=== PATIENT | female | born 1990 | race Caucasian/White ===

== ENCOUNTER 2021-03-05 20:40 | Inpatient (IN) | payer OTHER ==
[2021-03-05 21:54] VITALS: BMI 30.8
[2021-03-05 22:17] LABS: BASO % 0.7 % (0-2.0); EOS % 0.1 % (0-4.5); HEMOGLOBIN 12.1 GM/dL (10.7-15.3); LYMPH % 9.8 % (8-40); MCH 28.2 pg (25.7-33.7); MCHC 32.6 g/dl (32.0-36.0); MEAN CELL VOLUME 86.6 fl (80-96); MEAN PLT VOLUME 8.5 fl (7.5-11.1); MONO % 5.2 % (3.8-10.2); NEUT % 84.2 % (42.8-82.8); PLATELET COUNT 343 10^3/uL (134-434); RBC 4.28 M/mm3 (3.60-5.2); RDW 15.6 % (11.6-15.6); WHITE BLOOD COUNT 13.4 K/mm3 (4.0-10.0)
[2021-03-05 22:26] LABS: INR 0.97 (0.83-1.09); PROTHROMBIN TIME (PATIENT) 11.2 SEC (9.7-13.0)
[2021-03-05 22:28] LABS: ACTIVATED PTT 26.3 SECONDS (25.2-36.5)
[2021-03-05] MEDS ORDERED: BUPIVACAINE HCL/PF 0.25% (2.5MG/ML) 10 ML VIAL ONE (22:36)
[2021-03-05] MEDS ORDERED: FENTANYL/BUPIVACAINE/NS/PF - PCEA - 50 ML DISP.SYRIN EP ONE (22:39)
[2021-03-05 22:43] LABS: BLOOD UREA NITROGEN 11.6 mg/dL (7-18)
[2021-03-05] MEDS ORDERED: ELECTROLYTE-148 SOLN 1,000 ML IV SCH (22:45)
[2021-03-05 22:46] LABS: CREATININE 0.6 mg/dL (0.55-1.3)
[2021-03-05] MEDS: FENTANYL/BUPIVACAINE/NS/PF - PCEA - 50 ML DISP.SYRIN EP SCH (22:50)
[2021-03-05] MEDS ORDERED: NALOXONE HCL 0.4 MG/ML VIAL IVPUSH PRN (23:00)
[2021-03-06] MEDS ORDERED: OXYTOCIN 30 UNITS in 0.9% NS 30 UNIT/500 ML INFUS.BAG IVPB ONE (01:53)
[2021-03-06] MEDS ORDERED: OXYTOCIN 20 UNITS in 0.9% NS 20 UNIT/1,000 ML INFUS.BAG IV ONE (01:53)
[2021-03-06] MEDS ORDERED: FENTANYL/BUPIVACAINE/NS/PF - PCEA - 50 ML DISP.SYRIN EP ONE (02:44)
[2021-03-06] MEDS: FENTANYL/BUPIVACAINE/NS/PF - PCEA - 50 ML DISP.SYRIN EP SCH (02:45)
[2021-03-06] MEDS ORDERED: OXYTOCIN 30 UNITS in 0.9% NS 30 UNIT/500 ML INFUS.BAG IVPB SCH (04:45)
[2021-03-06] MEDS ORDERED: METHYLERGONOVINE MALEATE 0.2 MG/1 ML AMP IM PRN (08:23)
[2021-03-06] MEDS ORDERED: WITCH HAZEL 50% (TUCKS) 40 PAD/JAR PAD TP PRN (08:23)
[2021-03-06] MEDS ORDERED: BISACODYL 10 MG SUPP.RECT RC PRN (08:23)
[2021-03-06] MEDS ORDERED: BENZOCAINE 20% 57 GM BOTTLE TP PRN (08:23)
[2021-03-06] MEDS ORDERED: oxyCODONE HCL 5 MG TABLET PO PRN (08:23)
[2021-03-06] MEDS ORDERED: ACETAMINOPHEN 325 MG TABLET (FP) PO PRN (08:23)
[2021-03-06] MEDS ORDERED: BENZOCAINE 28 GM HEMORRHOIDAL OINTMENT TP PRN (08:23)
[2021-03-06] MEDS ORDERED: OXYTOCIN 20 UNITS in 0.9% NS 20 UNIT/1,000 ML INFUS.BAG IV SCH (08:30)
[2021-03-06 08:44] LABS: CORD HCO3 20.9 mmHg (20-29); CORD PCO2 60.4 mmHg (30-78); CORD pH 7.157 (7.14-7.44)
[2021-03-06 08:48] LABS: CORD BASE EXCESS -8.5 mmol/L (0-2); CORD HCO3 19.5 mmHg (20-29); CORD PCO2 48.7 mmHg (30-78); CORD pH 7.22 (7.14-7.44)
[2021-03-06] MEDS: IBUPROFEN 600 MG TABLET (FP) PO PRN (11:01)
[2021-03-06] MEDS: PRENATAL VITAMINS W/ FOLIC ACID TABLET (FP) PO SCH (11:01)
[2021-03-06] MEDS: FERROUS SO4 325 MG TABLET (FP) PO SCH (18:39)
[2021-03-07] MEDS: IBUPROFEN 600 MG TABLET (FP) PO PRN ×3 (01:07→21:46)
[2021-03-07 07:34] LABS: BASO % 0.3 % (0-2.0); HEMATOCRIT 30.4 % (32.4-45.2); HEMOGLOBIN 9.9 GM/dL (10.7-15.3); LYMPH % 16.3 % (8-40); MCH 28.5 pg (25.7-33.7); MCHC 32.5 g/dl (32.0-36.0); MEAN CELL VOLUME 87.7 fl (80-96); MEAN PLT VOLUME 8.4 fl (7.5-11.1); MONO % 4.6 % (3.8-10.2); NEUT % 77.8 % (42.8-82.8); PLATELET COUNT 264 10^3/uL (134-434); RBC 3.47 M/mm3 (3.60-5.2); RDW 15.6 % (11.6-15.6); WHITE BLOOD COUNT 12.2 K/mm3 (4.0-10.0)
[2021-03-07] MEDS: FERROUS SO4 325 MG TABLET (FP) PO SCH ×2 (08:16→16:36)
[2021-03-07] MEDS: PRENATAL VITAMINS W/ FOLIC ACID TABLET (FP) PO SCH (10:51)
[2021-03-07] MEDS ORDERED: SENNOSIDES/DOCUSATE COMBO (SENNA PLUS) TABLET (UD) PO PRN (22:00)
[2021-03-08] MEDS: FERROUS SO4 325 MG TABLET (FP) PO SCH (08:13)
[2021-03-08] MEDS: PRENATAL VITAMINS W/ FOLIC ACID TABLET (FP) PO SCH (09:24)
[2021-03-08 09:46] VITALS: BP 133/70; PULSE 78; TEMP 97.9
== END 2021-03-08 11:12 | disposition home or self-care (01) | DRG 560 ==
LOC: JLDR 20:40 → J3W 03-06 09:50
PROVIDERS: ADMIT Obstetrics & Gynecology; ATTEND Obstetrics & Gynecology
PROC: 10E0XZZ Delivery of Products of Conception, External Approach (ICD-10-PCS; principal; 2021-03-06)
PROC: 0W8NXZZ Division of Female Perineum, External Approach (ICD-10-PCS; 2021-03-06)
DX: O42.02 Full-term premature rupture of membranes, onset of labor within 24 hours of rupture (principal); O77.0 Labor and delivery complicated by meconium in amniotic fluid; O99.214 Obesity complicating childbirth; E66.9 Obesity, unspecified; Z37.0 Single live birth; Z3A.39 39 weeks gestation of pregnancy
CPT/HCPCS: 36415; 36600; 59025; 59409; 80048; 82803; 85025; 85610; 85730; 86780; 86850; 86900; 86901; C9803; U0003; U0005

== ENCOUNTER 2022-03-10 15:30 | Inpatient (IN) | payer OTHER ==
[2022-03-10] MEDS ORDERED: OXYTOCIN 10 UNITS/ML VIAL ONE (16:47)
[2022-03-10] MEDS ORDERED: LIDOCAINE HCL 1% PRESERVATIVE FREE - 30ML VIAL ONE (16:51)
[2022-03-10] MEDS ORDERED: WITCH HAZEL 50% (TUCKS) 40 PAD/JAR PAD TP PRN (17:18)
[2022-03-10] MEDS ORDERED: ACETAMINOPHEN 325 MG TABLET (FP) PO PRN (17:18)
[2022-03-10] MEDS ORDERED: BISACODYL 10 MG SUPP.RECT RC PRN (17:18)
[2022-03-10] MEDS ORDERED: BENZOCAINE 28 GM HEMORRHOIDAL OINTMENT TP PRN (17:18)
[2022-03-10] MEDS ORDERED: BENZOCAINE 20% 57 GM BOTTLE TP PRN (17:18)
[2022-03-10] MEDS ORDERED: OXYTOCIN 10 UNITS/ML VIAL IM ONE (17:19)
[2022-03-10 17:47] LABS: CORD BASE EXCESS -6.3 mmol/L (0-2); CORD HCO3 20.8 mmHg (20-29); CORD PCO2 46.6 mmHg (30-78); CORD pH 7.268 (7.14-7.44)
[2022-03-10 17:48] LABS: CORD BASE EXCESS -8.5 mmol/L (0-2); CORD HCO3 18.1 mmHg (20-29); CORD PCO2 41.1 mmHg (30-78); CORD pH 7.262 (7.14-7.44)
[2022-03-10 18:11] VITALS: BMI 30.2
[2022-03-10] MEDS ORDERED: IBUPROFEN 600 MG TABLET (FP) PO ONE (19:22)
[2022-03-10] MEDS: IBUPROFEN 600 MG TABLET (FP) PO PRN (19:25)
[2022-03-10 19:55] LABS: BASO % 0.6 % (0-2.0); HEMATOCRIT 33.3 % (32.4-45.2); HEMOGLOBIN 10.6 GM/dL (10.7-15.3); LYMPH % 5.3 % (8-40); MCH 25.3 pg (25.7-33.7); MCHC 31.7 g/dl (32.0-36.0); MEAN CELL VOLUME 79.6 fl (80-96); MEAN PLT VOLUME 8.8 fl (7.5-11.1); MONO % 3.3 % (3.8-10.2); NEUT % 90.8 % (42.8-82.8); PLATELET COUNT 356 10^3/uL (134-434); RBC 4.18 M/mm3 (3.60-5.2); RDW 15.6 % (11.6-15.6); WHITE BLOOD COUNT 19.6 K/mm3 (4.0-10.0)
[2022-03-10 20:06] LABS: INR 1.03 (0.83-1.09); PROTHROMBIN TIME (PATIENT) 11.8 SEC (9.7-13.0)
[2022-03-10 20:10] LABS: ACTIVATED PTT 27.6 SECONDS (25.2-36.5)
[2022-03-10 20:27] LABS: CREATININE 0.5 mg/dL (0.55-1.3)
[2022-03-11] MEDS: IBUPROFEN 600 MG TABLET (FP) PO PRN ×3 (01:14→21:32)
[2022-03-11 09:06] LABS: BASO % 0.1 % (0-2.0); EOS % 0.4 % (0-4.5); HEMATOCRIT 28.7 % (32.4-45.2); HEMOGLOBIN 9.5 GM/dL (10.7-15.3); LYMPH % 16.1 % (8-40); MCH 26.6 pg (25.7-33.7); MCHC 33.2 g/dl (32.0-36.0); MEAN CELL VOLUME 80.1 fl (80-96); MEAN PLT VOLUME 8.5 fl (7.5-11.1); MONO % 5.1 % (3.8-10.2); NEUT % 78.3 % (42.8-82.8); PLATELET COUNT 286 10^3/uL (134-434); RBC 3.58 M/mm3 (3.60-5.2); RDW 15.5 % (11.6-15.6); WHITE BLOOD COUNT 12.8 K/mm3 (4.0-10.0)
[2022-03-11] MEDS ORDERED: SENNOSIDES/DOCUSATE COMBO (SENNA PLUS) TABLET (UD) PO PRN (22:00)
[2022-03-12 11:09] VITALS: BP 126/67; PULSE 80; RESP 20; TEMP 98.3
== END 2022-03-12 14:00 | disposition home or self-care (01) | DRG 560 ==
LOC: JDEL 15:30 → JLDR 16:35 → J3W 21:01
PROVIDERS: ADMIT Student in an Organized Health Care Education/Training Program; ATTEND Student in an Organized Health Care Education/Training Program
PROC: 10E0XZZ Delivery of Products of Conception, External Approach (ICD-10-PCS; principal; 2022-03-10)
PROC: 0W8NXZZ Division of Female Perineum, External Approach (ICD-10-PCS; 2022-03-10)
PROC: 0KQM0ZZ Repair Perineum Muscle, Open Approach (ICD-10-PCS; 2022-03-10)
DX: O70.1 Second degree perineal laceration during delivery (principal); Z3A.39 39 weeks gestation of pregnancy; Z37.0 Single live birth
CPT/HCPCS: 36415; 36600; 59409; 80048; 82803; 85025; 85610; 85730; 86780; 86850; 86900; 86901; C9803-CS; U0003; U0005

== ENCOUNTER 2022-12-04 11:02 | Emergency (ER) | payer OTHER ==
[2022-12-04 11:10] VITALS: BP 113/69; PULSE 118; RESP 18; TEMP 98.3; BMI 27.3
[2022-12-04 13:44] LABS: HCG,QUALITATIVE URINE Borderline hCG level
[2022-12-04 13:45] LABS: EPI CELLS >36 /uL (0-25.1); HYALINE CASTS 30 /uL (0-3.1); PH,URINE 5.5 (5.0-8.0); URINE APPEARANCE CLOUDY; URINE BACTERIA 108 /uL (0-1359); URINE BILIRUBIN 1+ (NEGATIVE); URINE COLOR DK YELLOW; URINE GLUCOSE (UA) NEGATIVE (NEGATIVE); URINE KETONE TRACE (NEGATIVE); URINE LEUK ESTERASE TRACE (NEGATIVE); URINE NITRITE NEGATIVE (NEGATIVE); URINE PROTEIN 2+ (NEGATIVE); URINE RBC 668 /uL (0-23.9); URINE WBC 65 /uL (0-25.8)
[2022-12-04 14:22] LABS: BASO % 0.5 % (0-2.0); EOS % 0.4 % (0-4.5); HEMATOCRIT 34.8 % (32.4-45.2); HEMOGLOBIN 11.1 GM/dL (10.7-15.3); LYMPH % 11.4 % (8-40); MCH 25.5 pg (25.7-33.7); MEAN CELL VOLUME 79.9 fl (80-96); MEAN PLT VOLUME 7.9 fl (7.5-11.1); MONO % 3.8 % (3.8-10.2); NEUT % 83.9 % (42.8-82.8); PLATELET COUNT 366 10^3/uL (134-434); RBC 4.36 M/mm3 (3.60-5.2); RDW 16.1 % (11.6-15.6); WHITE BLOOD COUNT 10.4 K/mm3 (4.0-10.0)
== END 2022-12-04 16:37 | disposition home or self-care (01) ==
LOC: JERFT 11:02
DX: N93.9 Abnormal uterine and vaginal bleeding, unspecified (principal); R51.9 Headache, unspecified; R11.0 Nausea; R07.89 Other chest pain; R10.30 Lower abdominal pain, unspecified; Z30.432 Encounter for removal of intrauterine contraceptive device
CPT/HCPCS: 36415; 76830-TC; 81003; 84702; 84703; 85025; 86850; 86900; 86901; 87086; 99284-25

== ENCOUNTER 2023-10-11 17:00 | Inpatient (IN) | payer OTHER ==
[2023-10-11 18:31] VITALS: BMI 30.6
[2023-10-11 19:17] LABS: BASO % 0.4 % (0-2.0); EOS % 0.4 % (0-4.5); HEMATOCRIT 32.6 % (32.4-45.2); HEMOGLOBIN 11.1 GM/dL (10.7-15.3); LYMPH % 14.8 % (8-40); MCH 28.9 pg (25.7-33.7); MCHC 34.2 g/dl (32.0-36.0); MEAN CELL VOLUME 84.7 fl (80-96); MEAN PLT VOLUME 7.7 fl (7.5-11.1); MONO % 4.5 % (3.8-10.2); NEUT % 79.9 % (42.8-82.8); PLATELET COUNT 317 10^3/uL (134-434); RBC 3.85 M/mm3 (3.60-5.2); RDW 18.2 % (11.6-15.6); WHITE BLOOD COUNT 9.5 K/mm3 (4.0-10.0)
[2023-10-11 19:27] LABS: PROTHROMBIN TIME (PATIENT) 11.3 SEC (9.7-13.0)
[2023-10-11 19:30] LABS: ACTIVATED PTT 32.3 SECONDS (25.2-36.5)
[2023-10-11 19:37] LABS: POTASSIUM 3.8 mmol/L (3.5-5.1)
[2023-10-11 19:39] LABS: BLOOD UREA NITROGEN 5.6 mg/dL (7-18)
[2023-10-11 19:42] LABS: CREATININE 0.5 mg/dL (0.55-1.3)
[2023-10-11] MEDS ORDERED: LACTATED RINGERS SOLUTION 1,000 ML/1,000 ML INFUS.BAG IV SCH (20:00)
[2023-10-11] MEDS ORDERED: FENTANYL/BUPIVACAINE/NS/PF - PCEA - 50 ML DISP.SYRIN EP ONE ×2 (20:09→22:44)
[2023-10-11 20:34] LABS: HIV INTERPRETATION NEGATIVE (NEGATIVE)
[2023-10-11] MEDS: FENTANYL/BUPIVACAINE/NS/PF - PCEA - 50 ML DISP.SYRIN EP SCH (20:35)
[2023-10-11] MEDS: ELECTROLYTE-148 SOLN 1,000 ML IV SCH (20:40)
[2023-10-11] MEDS ORDERED: NALOXONE HCL 0.4 MG/ML VIAL IVPUSH PRN (20:50)
[2023-10-11] MEDS ORDERED: LIDOCAINE HCL 1% PRESERVATIVE FREE - 30ML VIAL ONE (21:56)
[2023-10-11] MEDS ORDERED: OXYTOCIN 20 UNITS in 0.9% NS 20 UNIT/1,000 ML INFUS.BAG IV ONE (21:57)
[2023-10-11] MEDS: OXYTOCIN 20 UNITS in 0.9% NS 20 UNIT/1,000 ML INFUS.BAG IV SCH (23:20)
[2023-10-11] MEDS ORDERED: oxyCODONE HCL 5 MG TABLET PO PRN (23:40)
[2023-10-11] MEDS ORDERED: BENZOCAINE 20% 57 GM BOTTLE TP PRN (23:40)
[2023-10-11] MEDS ORDERED: WITCH HAZEL 50% (TUCKS) 40 PAD/JAR PAD TP PRN (23:40)
[2023-10-11] MEDS ORDERED: BISACODYL 10 MG SUPP.RECT RC PRN (23:40)
[2023-10-11] MEDS ORDERED: BENZOCAINE 28 GM HEMORRHOIDAL OINTMENT TP PRN (23:40)
[2023-10-11] MEDS ORDERED: METHYLERGONOVINE MALEATE 0.2 MG/1 ML AMP IM PRN (23:40)
[2023-10-12] LABS: CORD BASE EXCESS -8.1 mmol/L (0-2); CORD HCO3 19.5 mmHg (20-29); CORD PCO2 47.4 mmHg (30-78); CORD pH 7.233 (7.14-7.44)
[2023-10-12 00:02] LABS: CORD BASE EXCESS -4.5 mmol/L (0-2); CORD PCO2 40.4 mmHg (30-78); CORD pH 7.334 (7.14-7.44)
[2023-10-12 02:11] VITALS: RESP 18
[2023-10-12] MEDS: IBUPROFEN 600 MG TABLET (FP) PO PRN (02:14)
[2023-10-12 07:23] LABS: BASO % 0.1 % (0-2.0); EOS % 0.4 % (0-4.5); HEMOGLOBIN 9.8 GM/dL (10.7-15.3); LYMPH % 13.6 % (8-40); MCH 28.7 pg (25.7-33.7); MCHC 33.7 g/dl (32.0-36.0); MEAN CELL VOLUME 85.3 fl (80-96); MONO % 4.8 % (3.8-10.2); NEUT % 81.1 % (42.8-82.8); PLATELET COUNT 258 10^3/uL (134-434); WHITE BLOOD COUNT 13.6 K/mm3 (4.0-10.0)
[2023-10-12] MEDS: ACETAMINOPHEN 325 MG TABLET (FP) PO PRN (08:10)
[2023-10-12] MEDS: PRENATAL VITAMINS W/ FOLIC ACID TABLET (FP) PO SCH (09:58)
[2023-10-12] MEDS: SENNOSIDES/DOCUSATE COMBO (SENNA PLUS) TABLET (UD) PO PRN (21:12)
[2023-10-13 10:08] VITALS: BP 117/74; PULSE 83; TEMP 98.4
== END 2023-10-13 13:15 | disposition home or self-care (01) | DRG 560 ==
LOC: JDEL 17:00 → JLDR 17:59 → J3W 10-12 01:22
PROVIDERS: ADMIT Obstetrics & Gynecology; ATTEND Obstetrics & Gynecology
PROC: 10E0XZZ Delivery of Products of Conception, External Approach (ICD-10-PCS; principal; 2023-10-11)
PROC: 0KQM0ZZ Repair Perineum Muscle, Open Approach (ICD-10-PCS; 2023-10-11)
PROC: 0W8NXZZ Division of Female Perineum, External Approach (ICD-10-PCS; 2023-10-11)
DX: O36.63X0 Maternal care for excessive fetal growth, third trimester, not applicable or unspecified (principal); O70.1 Second degree perineal laceration during delivery; Z3A.40 40 weeks gestation of pregnancy; Z37.0 Single live birth
CPT/HCPCS: 36415; 36600; 59025; 59409; 80048; 82803; 85025; 85610; 85730; 86780; 86850; 86900; 86901; 87389